=== PATIENT | male | born 1995 | race American Indian/Alaskan Native ===

== ENCOUNTER 2017-06-06 08:58 | Emergency (ER) | payer SELFPAY ==
--- NOTE | 2017-06-06 11:54 | Emergency Department Report ---
ED Male HPI - General Chief complaint: Urogenital-Male Stated complaint: TESTICULAR PAINS Time Seen by Provider: 06/06/17 11:42 Source: patient Mode of arrival: Ambulatory Limitations: No Limitations - History of Present Illness Initial comments: PT c/o intermittent, painful R testicle swelling. PT states he has had this problem for "a while" and states he had unprotected sex with new partner before onset. PT states he has waited weeks to get checked out because he works every day at the [employer], of note, pt does do a lot of heavy lifting. PT states currently his pain is 1/10 but it can increase to 7-8/10. PT states nothing he does affects the pain. PT states he has no medical history but states when he was a child, they thought he had Crohn's disease and he states he still will get frequent abd pain. MD Complaint: testicle pain, testicle swelling -: Gradual, week(s) Location: right testicle Radiation: chest Severity: Unable to Determine (pain waxes and wanes ) Severity scale (0 -10): 1 Quality: aching Consistency: constant (but pain level waxes and wanes ) Improves with: none Worsens with: none new sexual partner, lifting swelling. denies: discharge, rash, dysuria, fever, nausea/vomiting, incontinence - Related Data Sexually active: Yes Previous Rx's Medication Instructions Recorded Last Taken Type Doxycycline [Vibramycin CAP] 100 mg PO Q12HR #20 capsule 06/06/17 Unknown Rx Ibuprofen [Motrin] 600 mg PO Q8H PRN #15 tablet 06/06/17 Unknown Rx Allergies Allergy/AdvReac Type Severity Reaction Status Date / Time No Known Allergies Allergy Unverified 06/06/17 09:02 ED Review of Systems ROS: Stated complaint: TESTICULAR PAINS Other details as noted in HPI Comment: All other systems reviewed and negative Constitutional: denies: chills, fever Gastrointestinal: abdominal pain (hx of abd since small child ) Genitourinary: testicular pain. denies: dysuria, discharge, testicular mass Musculoskeletal: denies: back pain Skin: denies: rash, change in color ED Past Medical Hx - Past Medical History Previous Medical History?: No - Surgical History Past Surgical History?: No - Social History Smoking Status: Current Some Day Smoker Substance Use Type: Marijuana - Medications Home Medications: Home Medications Medication Instructions Recorded Confirmed Last Taken Type Doxycycline [Vibramycin CAP] 100 mg PO Q12HR #20 capsule 06/06/17 Unknown Rx Ibuprofen [Motrin] 600 mg PO Q8H PRN #15 tablet 06/06/17 Unknown Rx ED Physical Exam - General Limitations: No Limitations General appearance: alert, in no apparent distress, obese - Head Head exam: Present: atraumatic, normocephalic, normal inspection - Eye Eye exam: Present: normal appearance, PERRL, EOMI. Absent: conjunctival injection - ENT ENT exam: Present: normal exam, mucous membranes moist, normal external ear exam - Neck Neck exam: Present: normal inspection, full ROM - Respiratory Respiratory exam: Present: normal lung sounds bilaterally. Absent: respiratory distress, wheezes, chest wall tenderness - Cardiovascular Cardiovascular Exam: Present: regular rate, normal rhythm, normal heart sounds - GI/Abdominal GI/Abdominal exam: Present: soft. 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 Absent: scrotal swelling External exam: Present: normal external exam, other (no inguinal lympadenopathy or masses ) - Extremities Exam Extremities exam: Present: normal inspection, full ROM - Back Exam Back exam: Present: normal inspection, full ROM. Absent: CVA tenderness (R), CVA tenderness (L) - Neurological Exam Neurological exam: Present: alert, oriented X3, normal gait - Psychiatric Psychiatric exam: Present: normal affect, normal mood - Skin Skin exam: Present: warm, dry, intact, normal color. Absent: rash ED Course Vital Signs 06/06/17 06/06/17 09:03 14:00 Temperature 97.9 F Pulse Rate 59 L 64 Respiratory 18 18 Rate Blood Pressure 135/50 Blood Pressure 132/68 [Left] O2 Sat by Pulse 99 100 Oximetry - Reevaluation(s) Reevaluation #1: 06/06/17 11:57 PT aware of plan of care. No questions at this time. Reevaluation #2: 06/06/17 13:01 PT aware of US report and plan of care. PT has no questions at this time. Reevaluation #3: 06/06/17 13:51 PT treated with IM Rocephin for orcitis - Pulse Oximetry Interpretation Digit-Finger Initial Pulse Oximetry Readin Actions Taken: none ED Medical Decision Making - Lab Data Lab Results 06/06/17 Range/Units 12:58 Urine Color Yellow (Yellow) Urine Turbidity Clear (Clear) Urine pH 6.0 (5.0-7.0) Ur Specific Horatio 1.023 (1.003-1.030) Urine Protein <15 mg/dl (Negative) mg/dL Urine Glucose (UA) Neg (Negative) mg/dL Urine Ketones Neg (Negative) mg/dL Urine Blood Neg (Negative) Urine Nitrite Neg (Negative) Urine Bilirubin Neg (Negative) Urine Urobilinogen < 2.0 (<2.0) mg/dL Ur Leukocyte Esterase Neg (Negative) Urine WBC (Auto) 1.0 (0.0-6.0) /HPF Urine RBC (Auto) 1.0 (0.0-6.0) /HPF U Epithel Cells (Auto) < 1.0 (0-13.0) /HPF Urine Bacteria (Auto) 1+ (Negative) /HPF Urine Mucus 3+ /HPF - Radiology Data Radiology results: report reviewed US Scrotum- No torsion or epididmitis, suspect mild R orchitis. Slightly larger R testis and small R hydrocele - Differential Diagnosis std, torsion, hernia Critical Care Time: No Critical care attestation.: If time is entered above; I have spent that time in minutes in the direct care of this critically ill patient, excluding procedure time. ED Disposition Disposition: DC-01 TO HOME OR SELFCARE Is pt being admited?: No Does the pt Need Aspirin: No Condition: Stable Instructions: Sexually Transmitted Diseases (ED), Safe Sex (ED), Epididymitis ( ED), Epididymo-orchitis (ED), Testicle Pain (ED) Additional Instructions: No sex x 2 weeks Sexual partners will need testing/ treatment Follow up with Urology in 3-5 days Follow up with PCP or the Health Dept in 3-5 days for full panel STD testing. Finish all of the Doxy - avoid direct sun exposure when taking this medication Return to the ED if worsening or concerns Prescriptions: Doxycycline [Vibramycin CAP] 100 mg PO Q12HR #20 capsule Ibuprofen [Motrin] 600 mg PO Q8H PRN #15 tablet PRN Reason: Pain Referrals: PRIMARY CARE, [Primary Care Provider] - 3-5 Days [facility] [Outside] - 3-5 Days [facility] [Outside] - 3-5 Days SOPHY SMITH MD [Staff Physician] - 3-5 Days FRAN ISRAEL MD [Staff Physician] - 3-5 Days ROBERTO ASCENCIO MD [Staff Physician] - 3-5 Days VIJAYA MIJARES MD [Staff Physician] - 3-5 Days Forms: STI Treatment and Prevention, Work/School Release Form(ED) Time of Disposition: 13:08
--- NOTE | 2017-06-06 12:32 | Ultrasound Report ---
TESTICULAR ULTRASOUND WITH DUPLEX DOPPLER ULTRASOUND: 06/06/17 11:49:00 CLINICAL: Right scrotal pain and swelling. FINDINGS: High resolution ultrasound demonstrated normal testicular echogenicity, size and contours. No testicular mass. The right testis measured 4.0 x 2.5 x 2.9cm. The left testis measured 3.1 x 2.2 x 2.8cm. Normal bilateral epididymis. A small right hydrocele. No left hydrocele. Both testes and epididymes demonstrated normal blood flow by color and duplex Doppler with normal spectral waveforms. No inguinal hernia identified. IMPRESSION: A slightly larger right testis and a small right hydrocele. Suspect mild right orchitis. No testicular torsion or signs of epididymitis.
[2017-06-06] MEDS ORDERED: XYLOCAINE 1% MPF 5 mL INFILTRATI ONE (13:01)
[2017-06-06] MEDS ORDERED: ROCEPHIN IM ONE (13:01)
[2017-06-06 13:24] LABS: Bacteria,Urine 1+ /HPF (Negative); Bilirubin,Urine NEG (Negative); Blood,Urine NEG (Negative); Ketones,Urine NEG (Negative); Leukocyte Esterase,Urine NEG (Negative); Mucus,Urine 3+ /HPF; Nitrite,Urine NEG (Negative); Protein,Urine <15 mg/dL mg/dL (Negative); Urobilinogen,Urine < 2.0 mg/dL (<2.0)
[2017-06-06 14:01] VITALS: BP 132/68
== END 2017-06-06 14:01 | disposition home or self-care (01) ==
LOC: ED 08:58
DX: N50.811 Right testicular pain (principal); N50.89 Other specified disorders of the male genital organs; F12.10 Cannabis abuse, uncomplicated; F17.200 Nicotine dependence, unspecified, uncomplicated
CPT/HCPCS: 81001; 87591; 93975; 96372; 99284; J0696